=== PATIENT | female | born 2005 | race Two or more races ===

== ENCOUNTER 2023-11-23 18:52 | Emergency (ER) | payer BC ==
[~2023-11-23] VITALS: Ht 154.9 cm; Wt 49.9 kg
[2023-11-23] MEDS ORDERED: PAXIL20 MG (19:06)
== END 2023-11-23 20:29 | disposition home or self-care (01) ==
LOC: ER 18:53 → EMR PED 18:53
DX: H57.12 Ocular pain, left eye (principal)